=== PATIENT | male | born 1965 ===

== ENCOUNTER 2024-02-25 08:58 | Day surgery (SDC) | payer OTHER ==
[~2024-02-25] VITALS: Ht 177.8 cm; Wt 108.9 kg
[2024-02-25] MEDS ORDERED: KETOROLAC 30 MG/ML VIAL ONE (11:19)
[2024-02-25] MEDS: KETOROLAC 30 MG/ML VIAL IVP ONE (11:35)
[2024-02-25] MEDS: LIDOCAINE 2% 100 MG/5 ML UJET TP ONE (11:39)
== END 2024-02-25 12:25 | disposition home or self-care (01) ==
LOC: MOR 08:58 → MMU 08:58 → MOR 12:25
PROVIDERS: ATTEND Internal Medicine Gastroenterology
DX: K92.2 Gastrointestinal hemorrhage, unspecified (principal); K63.5 Polyp of colon; K64.8 Other hemorrhoids; I10 Essential (primary) hypertension; Z79.899 Other long term (current) drug therapy; Z98.890 Other specified postprocedural states
CPT/HCPCS: 45385; J1885